=== PATIENT | male | born 2000 | race Caucasian/White ===

== ENCOUNTER 2022-12-16 07:35 | Emergency (ER) | payer SELFPAY ==
--- NOTE | 2022-12-16 07:47 | NUR ---
PT WAS CALLED IN FOR TRIAGE - NO ANSWER. PT WAS NOT FOUND IN WAITING ROOM, NOT OUTSIDE.
== END 2022-12-16 07:50 | disposition left against medical advice (07) ==
LOC: ER 07:39
DX: Z53.21 Procedure and treatment not carried out due to patient leaving prior to being seen by health care provider (principal)